=== PATIENT | male | born 1945 ===

== ENCOUNTER 2020-07-22 06:30 | Day surgery (SDC) | payer OTHER ==
[~2020-07-22 06:30] MED LIST: SIMVASTATIN PO; SYNTHROID50 MCG PO
[2020-07-22] MEDS ORDERED: PERCOCET 5-3251 EACH PO (10:00)
== END 2020-07-22 15:10 | disposition home or self-care (01) ==
LOC: CIR.AMB 06:30
PROVIDERS: ATTEND Surgery
DX: K62.0 Anal polyp (principal); K62.4 Stenosis of anus and rectum; Z20.828 Contact with and (suspected) exposure to other viral communicable diseases